=== PATIENT | female | born 1975 | race Caucasian/White ===

== ENCOUNTER 2020-04-13 22:11 | Emergency (ER) | payer BC, OTHER ==
--- NOTE | 2020-04-13 22:54 | RAD ---
3 views right ankle: 04/13/2020 COMPARISON: None HISTORY: Injury, trauma, pain FINDINGS: There is a comminuted distal right tibial fracture with mild posterior and lateral displace ment as well as mild lateral angulation. There is a vertically oriented posteriorly displaced posterior malleolus fracture. There is a comminuted displaced fracture of the distal right fibula, th e distal fracture fragment demonstrating significant posterior displacement. There is no evidence for dislocation. The oblique view demonstrates lateral displacement and lateral angulation of the largest distal tibia l and fibular fracture fragments. The tibial fracture extends into the articular surface at the lateral base of the medial malleolus. IMPRESSION: Comminuted displaced and angulated trimalleolar fracture of the right ankle.
== END 2020-04-14 00:36 | disposition home or self-care (01) ==
LOC: ERS 22:11
DX: S82.851A Displaced trimalleolar fracture of right lower leg, initial encounter for closed fracture (principal); X50.1XXA Overexertion from prolonged static or awkward postures, initial encounter
CPT/HCPCS: 29515